=== PATIENT | male | born 1990 | race Caucasian/White ===

== ENCOUNTER 2017-12-28 15:34 | Emergency (ER) | payer SELFPAY ==
[~2017-12-28] VITALS: Ht 175.3 cm; Wt 63.6 kg
[2017-12-28 17:10] VITALS: Ht 175.3 cm; Wt 63.6 kg
[2017-12-28] MEDS ORDERED: VIBRAMYCIN 100100 MG PO (20:23)
[2017-12-28] MEDS ORDERED: VOLTAREN75 MG PO (20:23)
[2017-12-28 20:58] VITALS: BP 121/74
== END 2017-12-28 20:59 | disposition home or self-care (01) ==
LOC: D.ER 15:34
DX: L03.113 Cellulitis of right upper limb (principal)